=== PATIENT | male | born 2000 | race Caucasian/White ===

== ENCOUNTER 2020-06-26 02:41 | Emergency (ER) | payer OTHER, SELFPAY ==
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
--- NOTE | ~2020-06-26 | XR_ITS ---
XR hand RT min 3V 06/26/2020 03:32 INDICATION: Right hand pain PROCEDURE: 4 views right hand COMPARISON: No prior studies for comparison. FINDINGS: Fracture, dislocation or subluxation is not identified. The soft tissues appear within norm al limits. No foreign bodies are identified. IMPRESSION: 1: NO ACUTE BONE OR JOINT ABNORMALITY IDENTIFIED. Reviewed, dictated and finalized at location A. [employer] OPERATOR
[2020-06-26 02:38] VITALS: BP 129/82; PULSE 106; RESP 20; TEMP 36.3; O2SAT 97
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
[2020-06-26] MEDS: IBUPROFEN 600 MG TABLET PO (06:30)
[2020-06-26] MEDS: AMOXICILLIN/CLAVULANATE K 875-125 MG TAB 1 TABLET PO (06:30)
[2020-06-26 06:35] VITALS: BP 125/75; PULSE 84; RESP 20; O2SAT 99
== END 2020-06-26 06:58 | disposition home or self-care (01) ==
PROVIDERS: Emergency Provider Emergency Medicine
DX: S66.821A Laceration of other specified muscles, fascia and tendons at wrist and hand level, right hand, initial encounter (principal); S61.421A Laceration with foreign body of right hand, initial encounter; S02.2XXA Fracture of nasal bones, initial encounter for closed fracture; W25.XXXA Contact with sharp glass, initial encounter; Y04.0XXA Assault by unarmed brawl or fight, initial encounter
CPT/HCPCS: 12004; 12044; 70450; 70486; 73130; 99284; A9270

== ENCOUNTER 2021-11-11 10:43 | Emergency (ER) | payer OTHER, SELFPAY ==
[2021-11-11 10:52] VITALS: BP 142/82; PULSE 95; RESP 16; TEMP 35.9; O2SAT 98
--- NOTE | 2021-11-11 12:07 | ED.URI ---
HPI - URI/Sore Throat General Chief Complaint: Upper Respiratory Infection Stated Complaint: sinus infection Time Seen by Provider: 11/11/21 11:59 Source: patient Mode of arrival: ambulatory Limitations: no limitations History of Present Illness HPI Narrative: Patient presents today with a 3-day history of nasal congestion, sinus pressure, postnasal drainage, cough, and periorbital eye puffiness. He has been using Sudafed, Claritin, and cold compresses on his face with some minimal relief. History of seasonal allergies and asthma, but states his asthma has not been exacerbated with this illness. Denies shortness of breath. Related Data Home Medications Medication Instructions Recorded Confirmed dextroamphetamine-amphetamine ER 20 mg PO DAILY 11/11/21 11/11/21 20 mg 24hr capsule,extend release (Adderall XR) fluoxetine 20 mg capsule (Prozac) 20 mg PO DAILY 11/11/21 11/11/21 fluoxetine 40 mg capsule (Prozac) 40 mg PO DAILY 11/11/21 11/11/21 lamotrigine 100 mg tablet 100 mg PO DAILY 11/11/21 11/11/21 Allergies Allergy/AdvReac Type Severity Reaction Status Date / Time No Known Allergies Allergy Verified 11/11/21 11:24 Review of Systems Review of Systems: CONSTITUTIONAL: Denies body aches, fever, chills, or sweats. EYES: Denies visual changes, redness, or discharge. ENT: Denies rhinorrhea, sore throat, or otalgia.+ Congestion, postnasal drip CARDIOVASCULAR: Denies chest pain, palpitations, or edema. RESPIRATORY: Denies dyspnea.+ Cough GASTROINTESTINAL: Denies abdominal pain, nausea, vomiting, or diarrhea. GENITOURINARY: Denies dysuria or hematuria. SKIN: Denies rash, itching, or wounds. MUSCULOSKELETAL: Denies back pain, joint pain, or myalgia. NEUROLOGIC: Denies headache, numbness, tingling, or weakness. PSYCH: Denies depression or anxiety. [facility] Past Medical History Medical History Asthma Seasonal allergies Social History Social History Smoking status: Never smoker Comments At time of signature, I have reviewed and agree with nursing past medical, surgical, social and family history unless otherwise noted. Please see nursing chart for further information. There is no relevant family history pertinent to the presenting complaint Exam Narrative: GENERAL: Mildly ill-appearing, well-nourished, and in no acute distress. HEAD: Normocephalic, atraumatic. EYES: EOMI. No redness or drainage. Conjunctivae normal. Mild bilateral periorbital puffiness ENT: Mucous membranes pink and moist. Nares congested with rhinorrhea. Bilateral nasal turbinates are edematous without purulent discharge. Bilateral middle ear effusions without evidence of infection. Throat normal. Uvula midline. NECK: Normal AROM. Supple. No lymphadenopathy. CHEST: No respiratory distress. Clear to auscultation. HEART: Regular rate and rhythm. No murmur appreciated. Normal peripheral pulses. EXTREMITIES: Normal range of motion. No edema. SKIN: Warm, dry, no rash. Capillary refill normal. Normal skin turgor. NEURO: No focal deficits. Alert and oriented x3. Gait steady. PSYCH: Normal affect. No signs of depression or anxiety. Course Course Level of Care: Express Care Visit Vital Signs Vital signs: Vital Signs Temperature 96.7 F L 11/11/21 10:52 Pulse Rate 95 11/11/21 10:52 Respiratory Rate 16 11/11/21 10:52 Blood Pressure 142/82 H 11/11/21 10:52 Pulse Oximetry 98 11/11/21 10:52 Temperature 96.7 F L 11/11/21 10:52 Pulse Rate 95 11/11/21 10:52 Respiratory Rate 16 11/11/21 10:52 Blood Pressure 142/82 H 11/11/21 10:52 Pulse Oximetry 98 11/11/21 10:52 Reviewed. Pt has been instructed to follow up with his PCP regarding his elevated blood pressure today. MDM - URI/Sore Throat Differential Diagnosis Differential diagnosis: Likely upper respiratory infection, sinusitis, viral in
== END 2021-11-11 12:23 | disposition home or self-care (01) ==
PROVIDERS: Emergency Provider Nurse Practitioner
DX: J30.9 Allergic rhinitis, unspecified (principal); J45.909 Unspecified asthma, uncomplicated; F41.9 Anxiety disorder, unspecified; F32.A Depression, unspecified
CPT/HCPCS: 99213; G0463